=== PATIENT | female | born 1960 | race Caucasian/White ===

== ENCOUNTER 2016-07-23 17:01 | Emergency (ER) | payer OTHER ==
[~2016-07-23 17:01] MED LIST: COREG DPS6.25 MG PO; PROTONIX40 MG PO; ZESTRIL DPS10 MG PO
[2016-07-27] MEDS ORDERED: EFFEXOR XR DPS150 MG PO (17:49)
[2016-07-27] MEDS ORDERED: VITAMIN D50000 UNIT PO (17:49)
[2016-07-27] MEDS ORDERED: ALTACE DPS10 MG PO (17:50)
[2016-07-27] MEDS ORDERED: TOPROL XL DPS25 MG PO (17:50)
[2016-07-27] MEDS ORDERED: FOSAMAX70 MG PO (17:50)
[2016-07-27] MEDS ORDERED: ZYRTEC DPS10 MG PO (17:51)
[2016-07-27] MEDS ORDERED: TEMAZEPAM30 MG PO (17:51)
[2016-07-27] MEDS ORDERED: PRILOSEC DPS20 MG PO (17:51)
[2016-07-27] MEDS ORDERED: ALEVE220 MG PO (17:52)
[2016-07-27] MEDS ORDERED: ESTRACE DPS PO (17:52)
[2016-07-27] MEDS ORDERED: FLONASE 0.05% D16 GM NS (17:52)
[2016-07-27] MEDS ORDERED: COLACE-DPS100 MG PO (17:53)
--- NOTE | 2016-08-01 09:41 | ER ---
ADMIT: 07/23/2016 RM/LOC: ER [facility] MR#: [id number] [address] [address] [place] [address] Emergency Room Report SEX: F AGE: 56 : 1960 DATE: 07/23/2016 CHIEF COMPLAINT: Vomiting. HISTORY OF PRESENT ILLNESS: This is a 56-year-old female who said she ate tons of junk food last night; hot dogs, nachos, hot wings, and multiple other food items, started vomiting at midnight last night, and she has just been vomiting all day. She does not know if there was a bad food that she ate last night or if it was junk food or what was going on. She really actually does not have any pain she just cannot stop vomiting. COURSE IN THE EMERGENCY ROOM: Zofran, Reglan, Protonix, and fluids have been given. She actually feels significantly better. She wants to go home at this time. Her blood work showed a white count of 13.6 and hemoglobin 19.7. Urine showed 2+ ketones and 1+ protein. CMP was normal except for a bicarb of 20, and slightly low albumin of 3.3 and glucose of 135. I am sending her home with a script for Zofran. I did tell her to return if she starts to develop pain especially right lower quadrant. Told her that is indication of appendicitis, but again at this time, she does not have any pain. CLINICAL IMPRESSION: 1. Vomiting with dehydration. 2. Elevated hemoglobin likely due to dehydration. I did tell her that this needs to followed up on them. DISPOSITION: Stable at discharge. We will follow up if worsen and also follow up on that hemoglobin level. ZACKEYR Perez / Yasir Wang MD / maximo JOB #: [id number] CC: Ronald Olivas MD, Attending Physician Uli Mcnair, Family Physician
== END 2016-07-23 21:00 | disposition home or self-care (01) ==
LOC: ER 17:01
DX: E86.0 Dehydration (principal); R11.10 Vomiting, unspecified; R71.8 Other abnormality of red blood cells; I10 Essential (primary) hypertension; F41.9 Anxiety disorder, unspecified; Z90.710 Acquired absence of both cervix and uterus; Z95.0 Presence of cardiac pacemaker

== ENCOUNTER 2016-07-24 09:53 | Inpatient (IN) | payer OTHER ==
[~2016-07-24] VITALS: Ht 167.6 cm; Wt 80.9 kg
[2016-07-27] MEDS ORDERED: EFFEXOR XR DPS150 MG PO (17:49)
[2016-07-27] MEDS ORDERED: VITAMIN D50000 UNIT PO (17:49)
[2016-07-27] MEDS ORDERED: TOPROL XL DPS25 MG PO (17:50)
[2016-07-27] MEDS ORDERED: FOSAMAX70 MG PO (17:50)
[2016-07-27] MEDS ORDERED: ALTACE DPS10 MG PO (17:50)
[2016-07-27] MEDS ORDERED: TEMAZEPAM30 MG PO (17:51)
[2016-07-27] MEDS ORDERED: ZYRTEC DPS10 MG PO (17:51)
[2016-07-27] MEDS ORDERED: PRILOSEC DPS20 MG PO (17:51)
[2016-07-27] MEDS ORDERED: ALEVE220 MG PO (17:52)
[2016-07-27] MEDS ORDERED: ESTRACE DPS PO (17:52)
[2016-07-27] MEDS ORDERED: FLONASE 0.05% D16 GM NS (17:52)
[2016-07-27] MEDS ORDERED: COLACE-DPS100 MG PO (17:53)
--- NOTE | 2016-07-29 08:27 | HP ---
ADMIT: 07/24/2016 RM/LOC: 528 [facility] MR#: [id number] [address] [address] [place] [address] History and Physical SEX: F AGE: 56 : 1960 DATE OF SERVICE: CHIEF COMPLAINT: Nausea and vomiting. HISTORY OF PRESENT ILLNESS: The patient is a 56-year-old white female, who was previously been a patient of Dr. Reza Jovel. She presented to the emergency room today with persistent nausea and vomiting. Over the past 2 days, she has had some upset stomach, has had occasional abdominal pain that comes and goes. Nausea and vomiting have become more persistent. In fact, she states that she came to the emergency room yesterday because of her abdominal symptoms and was given IV fluid hydration and sent home. Today, when she returned to the emergency room because of worsening of her symptoms, she got a CT scan of her abdomen along with some blood work. Her CT of the abdomen did show a small bowel obstruction. The patient was given some IV fluids as well as some IV Zofran. She is admitted for further treatment of her small bowel obstruction. Of note, is that patient was hospitalized in April 2016 with sudden cardiac arrest, which required advanced cardiac life support and cardioversion. Please see previous hospitalization from May 04 through May 07, 2016. PAST MEDICAL HISTORY: The patient has a history of insomnia, anxiety with depression, hypertension, acid reflux, vitamin D deficiency, and osteoarthritis. She has also had a previous hysterectomy for a leiomyoma of the uterus. ALLERGIES: NO KNOWN MEDICAL ALLERGIES. MEDICATIONS: The patient currently on: 1. Vitamin D 50,000 units once weekly. 2. Ramipril 10 mg daily. 3. Venlafaxine ER 150 mg daily. 4. Metoprolol ER 25 mg daily. 5. Alendronate 70 mg once weekly. 6. Zyrtec 10 mg daily. 7. Omeprazole 20 mg daily. 8. Temazepam 30 mg at bedtime. 9. Estradiol 2 mg daily. 10.Aleve 220 mg once daily as needed. 11.Flonase nasal spray, two sprays twice daily in each nostril. SOCIAL HISTORY: The patient works at [employer], and is . She is a nonsmoker and occasionally drinks. No drug use. FAMILY HISTORY: No significant history of cardiac arrhythmias, heart disease, stroke, or diabetes. REVIEW OF SYSTEMS: HEENT: The patient denies visual changes, sore throat, hearing problems, sinus symptoms. CARDIAC: History of sudden cardiac arrest in April 2016, which required ADMIT: 07/24/2016 RM/LOC: 528 [facility] MR#: [id number] [address] [place] [place] [id number] [place] [address] History and Physical SEX: F AGE: 56 : 1960 ACLS resuscitation. Currently, no chest pain. Does have history of hypertension. RESPIRATORY: No shortness of breath, cough, or wheezes. No history of lung problems. GASTROINTESTINAL: Has had nausea, vomiting as well as intermittent abdominal pain for the past 2 days. Currently, has a small bowel obstruction. Has had some mild diarrhea over the past day. No prior history of gastrointestinal problems. GENITOURINARY: No dysuria, hematuria, or frequency. No prior kidney or bladder problems. ENDOCRINE: No history of thyroid problems or diabetes. NEUROLOGIC: No history of strokes or seizures. MUSCULOSKELETAL: Does have some osteoarthritis. No unusual muscle or joint aches and pains at this time. HEMATOLOGIC: No history of blood clots or bleeding tendencies. PHYSICAL EXAMINATION: VITAL SIGNS: Most recent vitals include a temperature of 98.9, pulse 61, and regular, respiratory rate 16, blood pressure 121/70, O2 saturation is 92% on room air. GENERAL: The patient is currently alert and oriented. She answers questions appropriately. Does not appear to be in acute distress. HEENT: Head is normocephalic, atraumatic. Pupils equally round and reactive to light and accommodation bilaterally. Oropharynx is moist. NECK: Supple without lymphadenopathy or JVD. No thyroid enlargement or tenderness. LUNGS: Clear bilaterally without wheezes, rhonchi, or rales. HEART: Regular rate and rhythm without murmur. She does have a pacemaker in place. ABDOMEN: Soft, nontender, and nondistended. Minimal bowel sounds at this point. No masses. EXTREMITIES: No clubbing, cyanosis, or edema. NEUROLOGIC: She is awake and alert. No focal deficits on neurologic exam. LABORATORY AND X-RAY DATA: Admission labs today included a white blood cell count of 20.6, hemoglobin 15.5, platelet count 216. Admission sodium 139, potassium 3.5, BUN 14, creatinine 1.0, glucose 140, total bilirubin 1.0, alkaline phosphatase 72, AST 17, ALT 16. CT scan of the abdomen and pelvis done today shows a small bowel obstruction with transition point located in the midline of the pelvis just anterior to the bladder. Mild ascites noted as well. ASSESSMENT: 1. Small bowel obstruction. 2. Persistent nausea with vomiting. ADMIT: 07/24/2016 RM/LOC: 528 [facility] MR#: [id number] [address] [place] [id number] [place] [address] History and Physical SEX: F AGE: 56 : 1960 3. Recent cardiac arrest in April 2016 with subsequent hospitalization and automatic implantable cardioverter-defibrillator and pacemaker placement. 4. Leukocytosis. PLAN: The patient has been admitted for small bowel obstruction. At this time, she will remain n.p.o. and will be given generous IV fluids. IV Zofran will be given as needed for nausea and vomiting. Surgical consult has been ordered and Dr. Olivas has discussed this with the surgeons through the emergency room. We will follow up daily labs and abdominal x-ray. We will also continue home medications with sips of water. IV Protonix will be given at this time. Tin Chirinos MD/ maximo JOB #: [id number] CC: Tin Chirinos, Attending Physician Tin Chirinos, Family Physician
--- NOTE | 2016-07-31 13:29 | CO ---
ADMIT: 07/24/2016 RM/LOC: 528 [facility] MR#: [id number] [address] [address] [address] [place] [address] Consultation SEX: F AGE: 56 : 1960 DATE OF CONSULTATION: 07/24/2016 ATTENDING PHYSICIAN: Tin Chirinos CONSULTING PHYSICIAN: Antonio Real MD REASON FOR CONSULTATION: Bowel obstruction. HISTORY OF PRESENT ILLNESS: This patient is a 56-year-old female, who actually was in the ER yesterday with vomiting, ultimately sent home, comes back again today. They did a CT scan of the abdomen and pelvis, the question is a small bowel obstruction. She said yesterday after she went home, she had a bowel movement last night and then ate and seemed to do okay and then today again she started vomiting. She has not vomited since she has been here. She really then complained to me of any pain as far as in her abdomen. A couple of times she has had some pains, but they have pretty much gone away on their own without any meds or taking anything else. At this point, she is otherwise lying in bed comfortably without, like I said, any other significant complaints. PAST SURGICAL HISTORY: Her one surgery is a laparoscopic-assisted hysterectomy, and she says she has had history of endometriosis in the past. No other significant abdominal surgeries. She has never had anything else otherwise quite like this. She did have a colonoscopy again in [address] Moreira, showed 1 benign tubulovillous adenoma. PAST MEDICAL HISTORY: Significant for here recently, I think, in April of this year she came in, she coded, I think, sudden cardiac arrest at home and ended up being worked up and having an AICD pacer placed. She has a history of some anxiety, hypertension, GERD, some osteoarthritis. ALLERGIES: SHE HAS NO KNOWN DRUG ALLERGIES. SOCIAL HISTORY: She is . Does not smoke, minimal EtOH, denies illicit drugs. FAMILY HISTORY: Otherwise noncontributory for this. CURRENT MEDICATIONS: Please see list on chart. REVIEW OF SYSTEMS: Negative other than what is described above as in the HPI. PHYSICAL EXAMINATION: GENERAL: She is alert. She is oriented. She does not appear to be in any significant distress, not complaining of any real pain. EYES: Her sclerae are nonicteric. CHEST: Clear anteriorly. HEART: Regular rate and rhythm. ADMIT: 07/24/2016 RM/LOC: 528 [facility] MR#: [id number] [address] [id number] [address] [place] [address] Consultation SEX: F AGE: 56 : 1960 ABDOMEN: Soft. No mass detected. No organomegaly. She really has minimal pain to deep palpation except and maybe the lower quadrant area. Has a few bowel sounds. EXTREMITIES: Without clubbing or cyanosis or edema. ASSESSMENT AND PLAN: Bowel obstruction versus partial small bowel obstruction. At this point other than a white count, it does show an elevation, I do not see anything else I am concerned, but she does not have any bad acute abdominal pain that makes me worry about compromised bowel or anything else. We are going to watch her, keep her n.p.o., some bowel rest and see if this resolves. If not, I did talk to her about the possibility of surgical intervention and what that may entail. Antonio Real MD/ maximo JOB #: [id number] CC: Tin Chirinos, Attending Physician Tin Chirinos, Family Physician
--- NOTE | 2016-08-18 08:27 | ER ---
ADMIT: 07/24/2016 RM/LOC: 620 [facility] MR#: [id number] [address] [address] [place] [address] Emergency Room Report SEX: F AGE: 56 : 1960 DATE: 07/24/2016 ADDENDUM: This 56-year-old white female coming in with abdominal discomfort. She does have a small bowel obstruction. I spoke with Dr. Chirinos who will admit and then follow up and consult Dr. Real. White count was 20,000. CONDITION ON DISCHARGE: Serious but stable at time of admission. Ronald Olivas MD/ levl JOB #: [id number] CC: Tin Chirinos MD, Attending Physician Tin Chirinos MD, Family Physician
--- NOTE | 2016-09-12 08:03 | DS ---
ADMIT: 07/24/2016 RM/LOC: 620 [facility] MR#: [id number] [address] [address] [place] [address] General Discharge Summary SEX: F AGE: 56 : 1960 ADMISSION DATE: 07/24/2016 DISCHARGE DATE: 07/26/2016 PRIMARY DIAGNOSES: 1. Small-bowel obstruction. 2. Persistent nausea and vomiting. 3. Recent cardiac arrest in April 2016 (status post AICD and pacemaker placement following this event). 4. Leukocytosis (resolved). CONSULTATIONS DURING THIS HOSPITALIZATION: General Surgery with Antonio Real MD HISTORY OF PRESENT ILLNESS: The patient is a 56-year-old, white female, who had previously been a patient of Dr. Reza Jovel. She presented to the emergency room on 07/24/2016, with complaint of persistent nausea and vomiting. Over the previous 2 days, she had had an upset stomach and had occasionally had some abdominal pain that was intermittent. As the nausea and vomiting became more persistent, she decided to come into the emergency room for evaluation. She was given some IV fluids initially and sent home. She returned the following day to the emergency room because of worsening of her symptoms, and a CT scan of her abdomen was done along with some blood work. CT scan did show some small bowel obstruction. She was admitted for evaluation and treatment of her small bowel obstruction. LABORATORY AND X-RAY: Admission labs through the emergency room included a white blood cell count of 20.6, hemoglobin 15.5, and platelet count 216. Admission sodium 139, potassium 3.5, BUN 14, creatinine 1.0, glucose 140, total bilirubin 1.0, alkaline phosphatase 72, AST 17, and ALT 16. CT scan of the abdomen and pelvis through the emergency room showed a small bowel obstruction with transition point located in the midline of the pelvis, chest, and anterior to the bladder. Mild ascites also noted in the abdomen. Additional pertinent labs included an abdominal x-ray done on 07/25, which showed a nonspecific bowel gas pattern and an abdominal x-ray done on 07/26/2016 that showed moderate amount of stool within the large bowel, but no gaseous distention or obstruction noted. Additional pertinent labs included a C-reactive protein of 2.22 prior to discharge on 07/26. Also prior to discharge on 07/26/2016, a sodium of 144, potassium 3.3, BUN 5, creatinine 0.5, glucose 79, alkaline phosphatase 52, AST 14, ALT 17, and magnesium 1.9. White blood cell count 5.6, hemoglobin 11.5, and platelet count 152. HOSPITAL COURSE: The patient was admitted to the hospital on 07/24/2016, with primary diagnosis of small-bowel obstruction. She was placed on IV fluids and made n.p.o. Zofran was given for nausea and Protonix was given as well. A surgery consult was ordered at time of admission. By 07/25, she was feeling much better. No further nausea, vomiting, or abdominal pain noted. She was passing gas at that point and not having any fevers or chills. Her abdominal x-ray did not show an obstructive pattern. Clear liquid diet was started on 07/25/2016. Throughout the remainder of the day on 07/25, the patient did ADMIT: 07/24/2016 RM/LOC: 620 [facility] MR#: [id number] [address] [place] [phone] [place] [address] General Discharge Summary SEX: F AGE: 56 : 1960 very well, and by 07/26/2016, she was doing very well. She had not had any further nausea, vomiting, or abdominal pain. She was passing gas without any problems. She was therefore set up to be discharged to home in very stable condition on 07/26/2016. DISCHARGE INSTRUCTIONS: The patient was discharged to home on 07/26/2016. MEDICATIONS AT TIME OF DISCHARGE: Included: 1. Altace 10 mg daily. 2. Effexor XR 150 mg daily. 3. Estrace 2 mg daily. 4. Restoril 30 mg at bedtime. 5. Toprol-XL 25 mg daily. 6. Vitamin D 50,000 units weekly. 7. Zyrtec 10 mg daily. 8. Flonase nasal spray b.i.d. 9. Omeprazole 20 mg daily. She was to remain on a clear liquid diet for 2 more days and then advance as tolerated. She is to follow up with her regular physician or physician of choice as needed. She had been admitted to co as a city call patient and will follow up with her regular provider at time of discharge. Tin Chirinos MD/ maximo JOB #: [id number] CC: Tin Chirinos MD, Attending Physician Tin Chirinos MD, Family Physician
== END 2016-07-26 13:35 | disposition home or self-care (01) | DRG 390 ==
LOC: ER 09:53 → 5MS 14:50 → 6PED 07-25 14:37
PROVIDERS: ADMIT Family Medicine
DX: K56.60 Unspecified intestinal obstruction (principal); Z86.74 Personal history of sudden cardiac arrest; G47.00 Insomnia, unspecified; D72.829 Elevated white blood cell count, unspecified; F41.8 Other specified anxiety disorders; I10 Essential (primary) hypertension; K21.9 Gastro-esophageal reflux disease without esophagitis; E55.9 Vitamin D deficiency, unspecified; M19.90 Unspecified osteoarthritis, unspecified site; Z95.810 Presence of automatic (implantable) cardiac defibrillator